=== PATIENT | male | born 1950 | race Caucasian/White ===

== ENCOUNTER → 2017-05-17 | Outpatient (REF) | payer MEDICARE, OTHER ==
[2017-05-17 17:37] LABS: MEAN CORPUSCULAR HGB CONC 33.8 g/dl (32.0-36.5); MEAN CORPUSCULAR VOLUME 97.6 fl (80.0-96.0); RED CELL DISTRIBUTION WIDTH 13.7 % (11.5-14.5); WHITE BLOOD COUNT 6.8 10^3/uL (4.0-10.0)
[2017-05-17 19:39] LABS: ALBUMIN/GLOBULIN RATIO 1.11 (1.00-1.93); ALKALINE PHOSPHATASE 54 U/L (45-117); ALT/SGPT 27 U/L (12-78); ANION GAP 4 MEQ/L (8-16); AST/SGOT 18 U/L (15-37); BILIRUBIN,TOTAL 0.8 MG/DL (0.2-1.0); BLOOD UREA NITROGEN 16 MG/DL (7-18); CALCIUM LEVEL 9.1 MG/DL (8.8-10.2); CARBON DIOXIDE LEVEL 30 MEQ/L (21-32); CHLORIDE LEVEL 105 MEQ/L (98-107); CHOLESTEROL LEVEL 249 MG/DL (<200); CREATININE FOR GFR 0.87 MG/DL (0.70-1.30); GLOMERULAR FILTRATION RATE > 60.0 (>49); GLUCOSE, FASTING 102 MG/DL (80-110); POTASSIUM SERUM 4.9 MEQ/L (3.5-5.1); SODIUM LEVEL 139 MEQ/L (136-145); TOTAL PROTEIN 7.6 GM/DL (6.4-8.2); TRIGLYCERIDES LEVEL 132 MG/DL (<150)
== END ==
LOC: M SFHCCLAY 10:11
PROVIDERS: ATTEND Family Medicine
DX: G56.02 Carpal tunnel syndrome, left upper limb (principal); R07.89 Other chest pain; M71.21 Synovial cyst of popliteal space [Baker], right knee; Z23 Encounter for immunization
CPT/HCPCS: 80053; 80061; 84443; 85027; 90662; G0008

== ENCOUNTER → 2018-05-18 | Outpatient (REF) | payer MEDICARE, OTHER ==
[2018-05-18 12:16] LABS: ALBUMIN 4.2 GM/DL (3.2-5.2); ALKALINE PHOSPHATASE 58 U/L (45-117); ALT/SGPT 29 U/L (12-78); ANION GAP 6 MEQ/L (8-16); AST/SGOT 25 U/L (7-37); BILIRUBIN,TOTAL 0.9 MG/DL (0.2-1.0); BLOOD UREA NITROGEN 18 MG/DL (7-18); CALCIUM LEVEL 9.3 MG/DL (8.8-10.2); CARBON DIOXIDE LEVEL 29 MEQ/L (21-32); CHLORIDE LEVEL 105 MEQ/L (98-107); CHOLESTEROL LEVEL 242 MG/DL (<200); CHOLESTEROL RISK RATIO 5.041 (<5); CREATININE FOR GFR 0.84 MG/DL (0.70-1.30); GLOMERULAR FILTRATION RATE > 60.0 (>49); GLUCOSE, FASTING 96 MG/DL (70-100); HDL CHOLESTEROL 48 MG/DL (>40); LDL CHOLESTEROL 175 MG/DL (<100); NON-HDL-C 194 MG/DL; SODIUM LEVEL 140 MEQ/L (136-145); TOTAL PROTEIN 7.7 GM/DL (6.4-8.2); TRIGLYCERIDES LEVEL 95 MG/DL (<150)
== END ==
LOC: M SFHCCLAY 09:20
DX: E78.00 Pure hypercholesterolemia, unspecified (principal); Z23 Encounter for immunization
CPT/HCPCS: 80053

== ENCOUNTER 2018-11-12 14:32 | Emergency (ER) | payer MEDICARE, OTHER ==
[~2018-11-12] VITALS: Ht 175.3 cm; Wt 72.7 kg
[2018-11-12] MEDS ORDERED: AMIODARONE HCL 150 MG/100 ML PREMIXED BAG (NEXTERONE) As Ordered ONE (15:00)
[2018-11-12 15:07] LABS: BASO # 0.1 10^3/uL (0.0-0.2); BASO % 0.5 % (0.0-1.0); EOS # 0.2 10^3/uL (0.0-0.50); EOS % 1.9 % (0.0-3.0); HEMATOCRIT 42.3 % (42.0-52.0); HEMOGLOBIN 14.6 g/dl (13.5-17.5); LYMPH # 1.8 10^3/uL (1.5-4.5); LYMPH % 14.8 % (24.0-44.0); MEAN CORPUSCULAR HEMOGLOBIN 32.6 pg (27.0-33.0); MEAN CORPUSCULAR HGB CONC 34.5 g/dl (32.0-36.5); MEAN CORPUSCULAR VOLUME 94.4 fl (80.0-96.0); MONO # 0.7 10^3/uL (0.0-0.8); MONO % 5.5 % (0.0-5.0); NEUTROPHILS # 9.2 10^3/uL (1.8-7.7); PLATELET COUNT, AUTOMATED 257 10^3/uL (150-450); RED BLOOD COUNT 4.48 10^6/uL (4.30-6.10); WHITE BLOOD COUNT 11.9 10^3/uL (4.0-10.0)
[2018-11-12] MEDS ORDERED: AMIODARONE HCL 150 MG in APPROPRIATE DILUENT 1 EA IV STA (15:14)
[2018-11-12 15:19] LABS: INR 1.07
--- NOTE | 2018-11-12 15:30 | REP ---
Clinical: Acute chest pain . Comparison: 09/12/2008 Findings: The mediastinum and cardiac silhouette are stable and within normal limits for portable technique. The lung lara are clear without acute consolidation, effusion, or pneumothorax. Skeletal structures are intact. Impression: No acute cardiopulmonary process appreciated. Electronically Signed by Matthieu Barajas MD 11/12/2018 03:21 P
[2018-11-12 15:47] LABS: ALBUMIN 3.7 GM/DL (3.2-5.2); ALT/SGPT 23 U/L (12-78); BILIRUBIN,DIRECT 0.2 MG/DL (0.0-0.2); BILIRUBIN,TOTAL 0.8 MG/DL (0.2-1.0); BLOOD UREA NITROGEN 18 MG/DL (7-18); CALCIUM LEVEL 9.1 MG/DL (8.8-10.2); CARBON DIOXIDE LEVEL 25 MEQ/L (21-32); CHLORIDE LEVEL 106 MEQ/L (98-107); CPK CREATINE PHOSPHOKINASE 233 U/L (39-308); CREATININE FOR GFR 0.96 MG/DL (0.70-1.30); ETHYL ALCOHOL (ETHANOL) < 0.003 % (0.000-0.010); GLOMERULAR FILTRATION RATE > 60.0 (>49); GLUCOSE, FASTING 169 MG/DL (70-100); MAGNESIUM LEVEL 1.9 MG/DL (1.8-2.4); MB/CK RELATIVE INDEX 2.36 (< OR =4); NT-PRO BNP 1015 PG/ML (<125); POTASSIUM SERUM 4.1 MEQ/L (3.5-5.1); SODIUM LEVEL 138 MEQ/L (136-145); TROPONIN I < 0.02 NG/ML (< 0.10)
[2018-11-12] MEDS ORDERED: AMIODARONE HCL 360 MG in APPROPRIATE DILUENT 1 EA IV SCH (17:00)
[2018-11-12 17:25] VITALS: BP 121/90
--- NOTE | 2018-11-13 21:52 | ECGEPIP ---
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
--- NOTE | 2018-11-13 21:54 | ECGEPIP ---
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
== END 2018-11-12 17:26 | disposition short-term general hospital (02) ==
LOC: M ED 14:32
DX: R55 Syncope and collapse (principal); I47.2 Ventricular tachycardia; I48.91 Unspecified atrial fibrillation; I48.92 Unspecified atrial flutter; Z86.19 Personal history of other infectious and parasitic diseases; Z87.891 Personal history of nicotine dependence
CPT/HCPCS: 36415; 71045; 80048; 80076; 82550; 82553; 83735; 83880; 84443; 84484; 85025; 85610; 93005; 93041; 94760; 96374; 96376; 99285; G0480

== ENCOUNTER → 2019-01-17 | Outpatient (REF) | payer MEDICARE, OTHER ==
[2019-01-17 12:24] LABS: ALT/SGPT 27 U/L (12-78); BLOOD UREA NITROGEN 21 MG/DL (7-18); CALCIUM LEVEL 8.9 MG/DL (8.8-10.2); CARBON DIOXIDE LEVEL 28 MEQ/L (21-32); CHLORIDE LEVEL 108 MEQ/L (98-107); CHOLESTEROL LEVEL 140 MG/DL (<200); CHOLESTEROL RISK RATIO 3.333 (<5); CREATININE FOR GFR 1.02 MG/DL (0.70-1.30); GLOMERULAR FILTRATION RATE > 60.0 (>42); GLUCOSE, FASTING 112 MG/DL (70-100); HDL CHOLESTEROL 42 MG/DL (>40); LDL CHOLESTEROL 80 MG/DL (<100); NON-HDL-C 98 MG/DL; POTASSIUM SERUM 4.5 MEQ/L (3.5-5.1); SODIUM LEVEL 141 MEQ/L (136-145); TRIGLYCERIDES LEVEL 88 MG/DL (<150)
== END ==
LOC: M SFHCCLAY 07:46
PROVIDERS: ATTEND Family Medicine
DX: E78.00 Pure hypercholesterolemia, unspecified (principal)

== ENCOUNTER → 2019-03-18 | Outpatient (REF) | payer MEDICARE, OTHER ==
[2019-03-19 14:27] LABS: BLOOD UREA NITROGEN 28 MG/DL (7-18); CARBON DIOXIDE LEVEL 24 MEQ/L (21-32); CHLORIDE LEVEL 110 MEQ/L (98-107); CREATININE FOR GFR 1.23 MG/DL (0.70-1.30); GLOMERULAR FILTRATION RATE > 60.0 (>42); GLUCOSE, FASTING 124 MG/DL (70-100); POTASSIUM SERUM 4.8 MEQ/L (3.5-5.1); SODIUM LEVEL 140 MEQ/L (136-145)
== END ==
LOC: M LABDRAWC 13:06
PROVIDERS: ATTEND Internal Medicine Cardiovascular Disease
DX: I48.91 Unspecified atrial fibrillation (principal)

== ENCOUNTER → 2019-05-16 | Outpatient (CLI) | payer MEDICARE, OTHER ==
--- NOTE | 2019-05-16 13:54 | REP ---
The PA and lateral chest: Comparison is 11/12/2018. Lung lara are hyperinflated. The costophrenic angles are effaced. This is not this specific and could be secondary to the hyperinflation or could represent small bilateral pleural effusions. There is a curvilinear parenchymal scar versus discoid atelectasis above the left hemidiaphragm. The lung lara otherwise clear. Cardiac size is normal. The amauri and mediastinum are unremarkable. There is thoracic scoliosis convex right in the lower thoracic spine. There is a loop recorder on the left. Impression: Hyperinflation. Small bilateral pleural effusions versus artifact from hyperinflation. Curvilinear scarring versus discoid atelectasis above the left hemidiaphragm. Scoliosis. Electronically Signed by Edwin Tucker MD 05/16/2019 01:46 P
== END ==
LOC: M CLY 09:34
PROVIDERS: ATTEND Family Medicine
DX: R91.8 Other nonspecific abnormal finding of lung field (principal); M41.9 Scoliosis, unspecified; R06.09 Other forms of dyspnea
CPT/HCPCS: 71046; 80053; 84439; 84443; 85027; 90682; 94010; G0008

== ENCOUNTER → 2019-05-16 | Outpatient (REF) | payer MEDICARE, OTHER ==
[2019-05-16 16:33] LABS: HEMATOCRIT 43.2 % (42.0-52.0); HEMOGLOBIN 14.3 g/dl (13.5-17.5); MEAN CORPUSCULAR HEMOGLOBIN 33.9 pg (27.0-33.0); MEAN CORPUSCULAR HGB CONC 33.1 g/dl (32.0-36.5); MEAN CORPUSCULAR VOLUME 102.4 fl (80.0-96.0); PLATELET COUNT, AUTOMATED 266 10^3/uL (150-450); RED BLOOD COUNT 4.22 10^6/uL (4.30-6.10); WHITE BLOOD COUNT 7.6 10^3/uL (4.0-10.0)
[2019-05-16 16:46] LABS: ALT/SGPT 25 U/L (12-78); BILIRUBIN,TOTAL 0.9 MG/DL (0.2-1.0); BLOOD UREA NITROGEN 16 MG/DL (7-18); CALCIUM LEVEL 9.3 MG/DL (8.8-10.2); CARBON DIOXIDE LEVEL 30 MEQ/L (21-32); CHLORIDE LEVEL 105 MEQ/L (98-107); CREATININE FOR GFR 1.06 MG/DL (0.70-1.30); FREE T4 1.24 NG/DL (0.76-1.46); GLOMERULAR FILTRATION RATE > 60.0 (>42); GLUCOSE, FASTING 94 MG/DL (70-100); SODIUM LEVEL 138 MEQ/L (136-145); TOTAL PROTEIN 7.7 GM/DL (6.4-8.2)
== END ==
LOC: M SFHCCLAY 09:05
PROVIDERS: ATTEND Family Medicine
DX: I48.0 Paroxysmal atrial fibrillation (principal); E78.00 Pure hypercholesterolemia, unspecified

== ENCOUNTER 2019-10-04 09:05 | Day surgery (SDC) | payer MEDICARE, OTHER ==
[~2019-10-04] VITALS: Ht 172.7 cm; Wt 72.6 kg
[~2019-10-04 09:05] MED LIST: ASPI81CH33 PO; CRES40TA PO; LISI-542 PO; NS 1,000 ML IV ONE
[2019-10-04] MEDS ORDERED: LIDOCAINE 2% INJ 100 MG/5 ML SDV (FOR ANES.) As Ordered ONE (09:59)
[2019-10-04] MEDS ORDERED: propofoL 500 MG/50 ML VIAL As Ordered ONE (09:59)
[2019-10-04] MEDS ORDERED: ePHEDrine SULFATE 25 MG/5 ML(5MG/ML) SYRINGE As Ordered ONE (10:08)
--- NOTE | 2019-10-04 10:24 | ROOR ---
Patient Name: Michael Cross Procedure Date: 10/04/2019 10:00 AM Date of : 1950 Age: 68 Room: [facility] Gender: Male Note Status: Finalized Procedure: Colonoscopy Indications: High risk colon cancer surveillance: Personal history of colonic polyps, Last colonoscopy: July 2016 Providers: Sp CORRALES MD Referring MD: Rodrigo Burnette MD Requesting Provider: Medicines: Monitored Anesthesia Care Complications: No immediate complications. Procedure: Pre-Anesthesia Assessment: - The heart rate, respiratory rate, oxygen saturations, blood pressure, adequacy of pulmonary ventilation, and response to care were monitored throughout the procedure. The Colonoscope was introduced through the anus and advanced to the terminal ileum, with identification of the appendiceal orifice and IC valve. The colonoscopy was performed without difficulty. The patient tolerated the procedure well. The quality of the bowel preparation was good. Findings: The perianal and digital rectal examinations were normal. Two sessile polyps were found in the transverse colon and cecum. The polyps were 4 to 5 mm in size. These polyps were removed with a cold snare. Resection and retrieval were complete. Mild sigmoid diverticulosis and moderate internal hemorrhoids. Retroflexion in the right colon was performed. The exam was otherwise without abnormality on direct and retroflexion views. Impression: - Two 4 to 5 mm polyps in the transverse colon and in the cecum, removed with a cold snare. Resected and retrieved. - Mild sigmoid diverticulosis and moderate internal hemorrhoids. - The examination was otherwise normal on direct and retroflexion views. Recommendation: - Repeat colonoscopy in 3 - 5 years for surveillance. - Telephone endoscopist for pathology results. - If the pathology report reveals adenomatous tissue, then repeat the colonoscopy for surveillance in 3 years. - If the pathology report indicates hyperplastic polyp, then repeat colonoscopy for surveillance in 5 years. Sp Corrales MD Sp CORRALES MD 10/04/2019 10:24:11 AM Electronically signed by Sp CORRALES MD Number of Addenda: 0 Note Initiated On: 10/04/2019 10:00 AM Estimated Blood Loss: Estimated blood loss: none.
[2019-10-04 10:40] VITALS: BP 110/64
== END 2019-10-04 10:52 | disposition home or self-care (01) ==
LOC: M OPP 09:05
PROVIDERS: ATTEND Internal Medicine Gastroenterology
DX: Z12.11 Encounter for screening for malignant neoplasm of colon (principal); Z86.010 Personal history of colon polyps; D12.3 Benign neoplasm of transverse colon; D12.0 Benign neoplasm of cecum; I48.91 Unspecified atrial fibrillation; G47.30 Sleep apnea, unspecified; K64.8 Other hemorrhoids; K57.30 Diverticulosis of large intestine without perforation or abscess without bleeding; Z79.82 Long term (current) use of aspirin; Z79.899 Other long term (current) drug therapy

== ENCOUNTER → 2019-10-22 | Outpatient (CLI) | payer MEDICARE, OTHER ==
[~2019-10-22] MED LIST changes: -NS 1,000 ML IV ONE
--- NOTE | 2019-10-25 12:42 | SLEEPCENT ---
DATE OF PROCEDURE: 10/22/2019 ORDERING PROVIDER: Matthieu Campbell PA-C. INTERPRETATION: Nocturnal polysomnography was performed for evaluation of sleep physiology in this patient with a history of somnolence and nonrestorative sleep who has comorbidity of hypertension and cardiac dysrhythmia. 8 hours and 7 minutes of data were reviewed. There were 325.5 minutes of sleep identified. Sleep latency was short of 10.5 minutes. REM latency was normal at 95-minute. Sleep architecture was initially quite fragmented. Overall sleep efficiency of 67.5%. The patient's electrocardiogram showed very small complexes, supraventricular rhythm with an average heart rate of 55 beats per minute. EEG showed normal waveforms for awake and sleep. There were 225 respiratory events identified of 10 seconds in duration or greater for an apnea-hypopnea index of 14.5. The events were primarily obstructive but 115 mixed and central apneas were also seen. Having clearly established the presence of obstructive and complex obstructive sleep apnea syndrome early in the study, testing was stopped for the application of pressure therapy. The patient was fit with a ResMed Quattro full-face mask of large size, 5 cm of water pressure was applied to the circuit and the lights were extinguished. Throughout the remaining hours of testing pressure titration and was performed. Despite a pressure of 14 cm, some obstructive events persisted. Oxygen saturations did improve, however. There was significant limb activity throughout the study. Limb movement arousal index of 6.8. IMPRESSION: Complex obstructive sleep apnea syndrome (G47.31, G4 7.33). Apnea-hypopnea index 41.5. RECOMMENDATIONS: Initiation of CPAP at 14 cm of water should improve the patient's experience of sleep. However, given the severity of the patient's disease and the complex nature, referral back to the sleep disorder center for a full night titration and consideration of the use of a bilevel device may be reasonable.
== END ==
LOC: M SLEEP 19:41
PROVIDERS: ATTEND Physician Assistant
DX: G47.33 Obstructive sleep apnea (adult) (pediatric) (principal); G47.61 Periodic limb movement disorder

== ENCOUNTER → 2019-10-23 | Outpatient (CLI) | payer MEDICARE, OTHER ==
--- NOTE | 2019-10-23 07:40 | REP ---
PA and lateral chest: Comparison is 05/16/2019. The lung lara are clear but are chronically hyperinflated, unchanged. Cardiac size is normal. The amauri, mediastinum, skeletal structures are unremarkable and unchanged. A loop recorder is implanted in the anterior chest wall on the left, unchanged. Impression Chronic hyperinflation. No acute cardiopulmonary findings. Loop recorder. Electronically Signed by Edwin Tucker MD 10/23/2019 07:31 A
== END ==
LOC: M RAD 06:05
PROVIDERS: ATTEND Physician Assistant
DX: R06.00 Dyspnea, unspecified (principal)

== ENCOUNTER → 2019-11-16 | Outpatient (CLI) | payer MEDICARE, OTHER ==
--- NOTE | 2019-11-18 16:33 | SLEEPCENT ---
DATE OF PROCEDURE: 11/16/2019 ORDERED BY: YESENIA Espinoza Nocturnal polysomnography was performed for the titration of pressure therapy in this patient with severe obstructive sleep apnea syndrome. For testing a Rosen and Luistereza, Simplus full-face mask of large size was used; 4 cm of water pressure was initially applied to the circuits and the lights were extinguished. 7 hours and 34 minutes of data were reviewed. There were 220 minutes of sleep identified. Sleep latency was short at 16 minutes. Rapid eye movement (REM) latency was delayed at 188 minutes. Sleep architecture showed poor progression. There was little REM sleep. Overall sleep efficiency was 49.5%. The electrocardiogram showed a baseline sinus rhythm with premature ventricular contractions (PVCs). Average heart rate 52 beats per minute. Electroencephalogram (EEG) showed normal waveforms for awake and sleep. Persistent respiratory events prompted an increase in CPAP pressure. Sleep was seen on a CPAP pressure of 17. Further increases in pressure were untolerated. The patient had difficulty establishing sleep late in the study. There was significant limb activity noted on this study. Limb movement arousal index was 16.4 up from a diagnostic night. IMPRESSION: Obstructive sleep apnea syndrome (G47.33). RECOMMENDATIONS: Nightly use of pressure therapy at 17 cm of water appears to palliate reasonably the patient's obstructive respiratory events. Close clinical followup will be necessary however given the severity of the patient's disease and difficulty establishing the sleep and sleep lab.
== END ==
LOC: M SLEEP 20:00
PROVIDERS: ATTEND Physician Assistant
DX: G47.33 Obstructive sleep apnea (adult) (pediatric) (principal)

== ENCOUNTER → 2020-02-22 | Outpatient (CLI) | payer MEDICARE, OTHER ==
[~2020-02-22] MED LIST changes: +AMIO200T3 PO; +ELIQ5TAB PO
--- NOTE | 2020-03-04 11:48 | SLEEPCENT ---
DATE OF STUDY: 02/22/2020 ORDERED BY: TONO Espinoza Nocturnal polysomnography was performed for retitration of pressure therapy in this patient with severe obstructive sleep apnea syndrome. For testing, a ResMed F30 full face mask of medium size was used. An initial pressure of 12 cm was applied to the circuit, and the lights were extinguished. 7 hours and 34 minutes of data were reviewed. There were 329 minutes of sleep identified. Sleep latency was short of 8 minutes. Rapid eye movement (REM) latency was prolonged at 165 minutes. Sleep architecture improved late in the study. Overall sleep efficiency was 73.9%. The patient's electrocardiogram showed a sinus rhythm with an average heart rate of 48 beats per minute. Electroencephalogram (EEG) showed normal waveforms for awake and sleep. Persistent respiratory events prompted an increase in continuous positive airway pressure (CPAP) pressure; and despite optimal mask fit and minimal air leak, the patient was changed to a bilevel device. Best sleep was seen on a bilevel device, inspiratory pressure 24 over expiratory pressure of 20. Some significant limb activity was seen, particularly early in the study. The limb movement arousal index was 15.5. IMPRESSION: Obstructive sleep apnea syndrome (G47.33). RECOMMENDATION: Nightly use of pressure therapy using a bilevel device, inspiratory of 24 over expiratory of 20.
== END ==
LOC: M SLEEP 20:00
PROVIDERS: ATTEND Physician Assistant
DX: G47.33 Obstructive sleep apnea (adult) (pediatric) (principal)

== ENCOUNTER 2020-05-03 09:57 | Emergency (ER) | payer MEDICARE, OTHER ==
[~2020-05-03] VITALS: Ht 175.3 cm; Wt 70.5 kg
[~2020-05-03 09:57] MED LIST changes: -AMIO200T3 PO; -ELIQ5TAB PO
[2020-05-03] MEDS ORDERED: NS 1,000 ML IV SCH (10:11)
[2020-05-03] MEDS ORDERED: AMIO200T3 PO (10:13)
[2020-05-03 10:39] LABS: BASO % 0.5 % (0.0-1.0); EOS # 0.1 10^3/uL (0.0-0.5); EOS % 1.1 % (0.0-3.0); HEMATOCRIT 43.4 % (42.0-52.0); HEMOGLOBIN 14.8 g/dl (13.5-17.5); LYMPH # 1.1 10^3/uL (1.5-5.0); MEAN CORPUSCULAR HEMOGLOBIN 34.2 pg (27.0-33.0); MEAN CORPUSCULAR HGB CONC 34.1 g/dl (32.0-36.5); MEAN CORPUSCULAR VOLUME 100.2 fl (80.0-96.0); MONO # 0.3 10^3/uL (0.0-0.8); NEUTROPHILS # 6.4 10^3/uL (1.5-8.5); PLATELET COUNT, AUTOMATED 251 10^3/uL (150-450); RED BLOOD COUNT 4.33 10^6/uL (4.30-6.10)
[2020-05-03 10:49] LABS: PROTHROMBIN TIME 13.4 SECONDS (12.5-14.3)
[2020-05-03 11:10] LABS: BILIRUBIN,DIRECT 0.2 MG/DL (0.0-0.2); FREE T4 1.22 NG/DL (0.76-1.46); THYROID STIMULATING HORMONE 1.85 uIU/ML (0.358-3.740); TOTAL PROTEIN 7.5 GM/DL (6.4-8.2)
--- NOTE | 2020-05-03 11:15 | REPVR ---
PROCEDURE INFORMATION: Exam: XR Chest, 1 View Exam date and time: 05/03/2020 10:53 AM Age: 69 years old Clinical indication: Chest pain; Type not specified TECHNIQUE: Imaging protocol: XR of the chest Views: 1 view. COMPARISON: CR PORTABLE CHEST X-RAY 11/12/2018 3:11 PM FINDINGS: Tubes, catheters and devices: There is a loop recorder in place. Lungs: There is slight hyperinflation which can be seen with COPD. Pleural space: No pleural effusion. No pneumothorax. Heart/Mediastinum: No cardiomegaly. Bones/joints: Unchanged. IMPRESSION: 1. COPD. 2. A followup PA and lateral radiograph is recommended when the patient is clinically able. Electronically signed by: Jose Reyes On 05/03/2020 11:14:59 AM
[2020-05-03 12:46] VITALS: BP 143/90
[2020-05-03] MEDS ORDERED: ELIQ5TAB PO (12:55)
[2020-05-03] MEDS ORDERED: APIXABAN 5 MG TAB (ELIQUIS) PO ONE (13:00)
--- NOTE | 2020-05-03 13:22 | ECGEPIP ---
[facility] - ED Test Date: 2020-05-03 Pat Name: NEREYDA KIMBROUGH Department: Room: - Gender: Male Crtt: : 1950 Requested By: Angeles Sparks Order Number: [id number] Reading MD: Angeles Sparks Measurements Intervals [place] Rate: 69 P: NM: 0 QRS: 57 QRSD: 84 T: 65 QT: 408 QTc: 439 Interpretive Statements ATYPICAL ATRIAL FLUTTER LOW QRS VOLTAGE IN EXTREMITY LEADS ABNORMAL RHYTHM ECG Electronically Signed on 05-03-2020 13:22:26 EDT by Angeles Sparks
== END 2020-05-03 13:17 | disposition home or self-care (01) ==
LOC: M ED 09:57
DX: I48.4 Atypical atrial flutter (principal); R94.31 Abnormal electrocardiogram [ECG] [EKG]; I48.91 Unspecified atrial fibrillation; Z95.818 Presence of other cardiac implants and grafts; Z82.49 Family history of ischemic heart disease and other diseases of the circulatory system; J44.9 Chronic obstructive pulmonary disease, unspecified; Z79.01 Long term (current) use of anticoagulants; Z79.899 Other long term (current) drug therapy

== ENCOUNTER → 2020-11-13 | Outpatient (REF) | payer MEDICARE, OTHER ==
[~2020-11-13] MED LIST changes: +AMIO200T3 PO; +ELIQ5TAB PO; -LISI-542 PO; +LISI-898 PO
[2020-11-13 12:06] LABS: RED BLOOD COUNT 4.37 10^6/uL (4.30-6.10)
[2020-11-13 12:07] LABS: BASO # 0.1 10^3/uL (0.0-0.2); BASO % 0.8 % (0.0-1.0); EOS # 0.3 10^3/uL (0.0-0.5); EOS % 3.9 % (0.0-3.0); HEMATOCRIT 44.6 % (42.0-52.0); HEMOGLOBIN 14.8 g/dl (13.5-17.5); LYMPH # 2.4 10^3/uL (1.5-5.0); LYMPH % 29.8 % (24.0-44.0); MEAN CORPUSCULAR HEMOGLOBIN 33.9 pg (27.0-33.0); MEAN CORPUSCULAR HGB CONC 33.2 g/dl (32.0-36.5); MEAN CORPUSCULAR VOLUME 102.1 fl (80.0-96.0); MONO # 0.6 10^3/uL (0.0-0.8); MONO % 7.8 % (2.0-8.0); NEUTROPHILS # 4.6 10^3/uL (1.5-8.5); NEUTROPHILS % 57.3 % (36.0-66.0); PLATELET COUNT, AUTOMATED 261 10^3/uL (150-450)
[2020-11-13 12:21] LABS: ALBUMIN 3.9 GM/DL (3.2-5.2); ALT/SGPT 29 U/L (12-78); BILIRUBIN,TOTAL 0.9 MG/DL (0.2-1.0); BLOOD UREA NITROGEN 21 MG/DL (7-18); CALCIUM LEVEL 9.3 MG/DL (8.8-10.2); CARBON DIOXIDE LEVEL 29 MEQ/L (21-32); CHLORIDE LEVEL 106 MEQ/L (98-107); CHOLESTEROL LEVEL 156 MG/DL (<200); CHOLESTEROL RISK RATIO 3.183 (<5); CREATININE FOR GFR 1.05 MG/DL (0.70-1.30); FREE T4 1.04 NG/DL (0.76-1.46); GLOMERULAR FILTRATION RATE > 60.0 (>42); GLUCOSE, FASTING 106 MG/DL (70-100); HDL CHOLESTEROL 49 MG/DL (>40); LDL CHOLESTEROL 87 MG/DL (<100); NON-HDL-C 107 MG/DL; POTASSIUM SERUM 4.9 MEQ/L (3.5-5.1); SODIUM LEVEL 138 MEQ/L (136-145); TOTAL PROTEIN 7.5 GM/DL (6.4-8.2); TRIGLYCERIDES LEVEL 101 MG/DL (<150)
== END ==
LOC: M SFHCCLAY 08:29
PROVIDERS: ATTEND Family Medicine
DX: H53.9 Unspecified visual disturbance (principal); I48.0 Paroxysmal atrial fibrillation; Z79.899 Other long term (current) drug therapy

== ENCOUNTER 2021-01-18 08:32 | Emergency (ER) | payer MEDICARE, OTHER ==
[~2021-01-18] VITALS: Ht 175.3 cm; Wt 72.1 kg
[2021-01-18] MEDS ORDERED: XARE20TA PO (08:40)
[2021-01-18 09:01] LABS: BILIRUBIN, URINE MANUAL NEGATIVE (NEGATIVE); GLUCOSE, URINE (UA) MANUAL NEGATIVE (NEGATIVE); KETONE, URINE MANUAL NEGATIVE (NEGATIVE); UROBILINOGEN, URINE MANUAL NORMAL (NORMAL)
[2021-01-18 09:05] LABS: BACTERIA, URINE SMALL AMOUNT; RBC, URINE TNTC /hpf (0-3)
[2021-01-18 09:57] VITALS: BP 123/71
[2021-01-18] MEDS ORDERED: CEPH500C PO (10:06)
== END 2021-01-18 10:40 | disposition home or self-care (01) ==
LOC: M ED 08:32
DX: N30.01 Acute cystitis with hematuria (principal); I10 Essential (primary) hypertension; I48.91 Unspecified atrial fibrillation; E78.5 Hyperlipidemia, unspecified; Z79.01 Long term (current) use of anticoagulants; Z79.899 Other long term (current) drug therapy

== ENCOUNTER → 2021-03-04 | Outpatient (REF) | payer MEDICARE, OTHER ==
[~2021-03-04] MED LIST changes: +CEPH500C PO; +XARE20TA PO
[2021-03-04 16:51] LABS: BLOOD UREA NITROGEN 20 MG/DL (7-18); CARBON DIOXIDE LEVEL 29 MEQ/L (21-32); CHLORIDE LEVEL 107 MEQ/L (98-107); CREATININE FOR GFR 1.08 MG/DL (0.70-1.30); GLOMERULAR FILTRATION RATE > 60.0 (>42); GLUCOSE, FASTING 100 MG/DL (70-100); POTASSIUM SERUM 4.6 MEQ/L (3.5-5.1); SODIUM LEVEL 139 MEQ/L (136-145)
== END ==
LOC: M LABDRAWC 15:56
PROVIDERS: ATTEND Nurse Practitioner Adult Health
DX: I47.2 Ventricular tachycardia (principal)

== ENCOUNTER → 2021-09-08 | Outpatient (REF) | payer MEDICARE, OTHER ==
[~2021-09-08] MED LIST changes: -AMIO200T3 PO; +AMIO200T49 PO; -LISI-898 PO; +LISI5TAB11 PO
[2021-09-08 16:19] LABS: HEMATOCRIT 42.1 % (42.0-52.0); HEMOGLOBIN 13.8 g/dl (13.5-17.5); MEAN CORPUSCULAR HEMOGLOBIN 33.1 pg (27.0-33.0); MEAN CORPUSCULAR HGB CONC 32.8 g/dl (32.0-36.5); PLATELET COUNT, AUTOMATED 322 10^3/uL (150-450); RED BLOOD COUNT 4.17 10^6/uL (4.30-6.10); WHITE BLOOD COUNT 7.7 10^3/uL (4.0-10.0)
[2021-09-08 16:59] LABS: ALBUMIN 3.8 GM/DL (3.2-5.2); BILIRUBIN,TOTAL 0.7 MG/DL (0.2-1.0); CALCIUM LEVEL 9.6 MG/DL (8.8-10.2); CHOLESTEROL RISK RATIO 3.666 (<5); CREATININE FOR GFR 1.35 MG/DL (0.70-1.30); GLOMERULAR FILTRATION RATE 55.3 (>42); POTASSIUM SERUM 5.2 MEQ/L (3.5-5.1); THYROID STIMULATING HORMONE 1.65 uIU/ML (0.358-3.740); TOTAL PROTEIN 7.7 GM/DL (6.4-8.2)
== END ==
LOC: M SFHCCLAY 10:47
PROVIDERS: ATTEND Family Medicine
DX: I48.0 Paroxysmal atrial fibrillation (principal); I10 Essential (primary) hypertension; E78.00 Pure hypercholesterolemia, unspecified

== ENCOUNTER → 2021-10-14 | Outpatient (REF) | payer MEDICARE, OTHER ==
[2021-10-14 17:58] LABS: THYROID STIMULATING HORMONE 1.29 uIU/ML (0.358-3.740)
[2021-10-15 15:34] LABS: FREE T4 1.2 NG/DL (0.76-1.46)
[2021-10-18 17:08] LABS: ESTROGENS TOTAL 153 pg/mL (56-213); TESTOSTERONE FREE (DIRECT) 7.2 pg/mL (6.6-18.1)
== END ==
LOC: M SFHCCLAY 10:03
PROVIDERS: ATTEND Family Medicine
DX: N64.4 Mastodynia (principal); Z79.899 Other long term (current) drug therapy

== ENCOUNTER → 2021-10-29 | Outpatient (CLI) | payer MEDICARE, OTHER | LOC: M WHC 11:06 | PROVIDERS: ATTEND Family Medicine | DX: N64.4 Mastodynia (principal) | CPT/HCPCS: 76642; 77066; G0279 ==

== ENCOUNTER → 2021-12-10 | Outpatient (CLI) | payer MEDICARE, OTHER ==
[2021-12-10 17:21] LABS: ALBUMIN 4.1 GM/DL (3.2-5.2); BILIRUBIN,TOTAL 0.8 MG/DL (0.2-1.0); CALCIUM LEVEL 9.4 MG/DL (8.8-10.2); CREATININE FOR GFR 1.37 MG/DL (0.70-1.30); FOLLICLE STIMULATING HORMONE 8.3 mIU/mL (1.4-18.1); FREE T4 1.1 NG/DL (0.76-1.46); GLOMERULAR FILTRATION RATE 54.4 (>42); LUTEINIZING HORMONE 10.3 mIU/mL (3.1-34.6); POTASSIUM SERUM 5.1 MEQ/L (3.5-5.1); THYROID STIMULATING HORMONE 1.59 uIU/ML (0.358-3.740); TOTAL PROTEIN 7.3 GM/DL (6.4-8.2)
== END ==
LOC: M PLALAB 14:57
PROVIDERS: ATTEND Surgery
DX: N62 Hypertrophy of breast (principal); Z79.899 Other long term (current) drug therapy

== ENCOUNTER → 2022-01-06 | Outpatient (REF) | payer MEDICARE, OTHER | LOC: M LABDRAWC 17:36 | PROVIDERS: ATTEND Surgery | DX: N62 Hypertrophy of breast (principal); I48.0 Paroxysmal atrial fibrillation; I25.10 Atherosclerotic heart disease of native coronary artery without angina pectoris ==

== ENCOUNTER → 2022-06-27 | Outpatient (CLI) | payer MEDICARE, OTHER | LOC: M CLY 08:10 | PROVIDERS: ATTEND Physician Assistant | DX: Z01.818 Encounter for other preprocedural examination (principal); R06.09 Other forms of dyspnea; I70.0 Atherosclerosis of aorta; M51.34 Other intervertebral disc degeneration, thoracic region; M53.84 Other specified dorsopathies, thoracic region; Z95.828 Presence of other vascular implants and grafts ==

== ENCOUNTER 2022-06-28 10:14 | Emergency (ER) | payer MEDICARE, OTHER ==
[~2022-06-28] VITALS: Ht 175.3 cm; Wt 67.4 kg
[2022-06-28 10:38] LABS: HEMATOCRIT 29.7 % (42.0-52.0); HEMOGLOBIN 10.2 g/dl (13.5-17.5); MEAN CORPUSCULAR HEMOGLOBIN 31.7 pg (27.0-33.0); MEAN CORPUSCULAR HGB CONC 34.3 g/dl (32.0-36.5); MEAN CORPUSCULAR VOLUME 92.2 fl (80.0-96.0); RED BLOOD COUNT 3.22 10^6/uL (4.30-6.10); WHITE BLOOD COUNT 6.4 10^3/uL (4.0-10.0)
[2022-06-28 10:41] LABS: PLATELET COUNT, AUTOMATED 69 10^3/uL (150-450)
[2022-06-28 11:25] LABS: NEUTROPHILS 60 % (28-66); PLATELET ESTIMATE DECREASED (NORMAL); TOXIC VACUOLATION 1+
[2022-06-28 11:37] LABS: ATYPICAL LYMPH 5 % (0-5); LYMPHOCYTES 32 % (16-44)
[2022-06-28 11:38] LABS: BLOOD UREA NITROGEN 37 MG/DL (7-18); CALCIUM LEVEL 6.9 MG/DL (8.8-10.2); CARBON DIOXIDE LEVEL 19 MEQ/L (21-32); CHLORIDE LEVEL 104 MEQ/L (98-107); CREATININE FOR GFR 1.25 MG/DL (0.70-1.30); GLOMERULAR FILTRATION RATE > 60.0 (>42); GLUCOSE, FASTING 99 MG/DL (70-100); MONOCYTES 3 % (0-5); POTASSIUM SERUM 3.5 MEQ/L (3.5-5.1); SODIUM LEVEL 132 MEQ/L (136-145)
[2022-06-28 11:42] LABS: RSV AMPLIFICATION NEGATIVE (NEGATIVE)
[2022-06-28 11:45] LABS: CK-MB VALUE MASS 2.4 NG/ML (<3.6); MB/CK RELATIVE INDEX 4.36 (< OR =4)
[2022-06-28 11:57] LABS: INR 3.02; PARTIAL THROMBOPLASTIN TIME 45.2 SECONDS (24.8-34.2); PROTHROMBIN TIME 31.8 SECONDS (12.5-14.5)
[2022-06-28 12:42] LABS: ALBUMIN 2.1 GM/DL (3.2-5.2); ALT/SGPT 69 U/L (12-78); BILIRUBIN,DIRECT 0.5 MG/DL (0.0-0.2); MAGNESIUM LEVEL 1.7 MG/DL (1.8-2.4); TOTAL PROTEIN 5.4 GM/DL (6.4-8.2)
[2022-06-28] MEDS ORDERED: MAG SULF 1GM/100ML (MAG RUN) 1 GM in IV 1 EA IV ONE (12:50)
[2022-06-28 13:11] LABS: CK-MB VALUE MASS 1.8 NG/ML (<3.6); MB/CK RELATIVE INDEX 2.3 (< OR =4)
[2022-06-28] MEDS ORDERED: ETOMIDATE INJ 20MG/10ML VIAL IV ONE (16:05)
[2022-06-28 16:55] VITALS: BP 95/53
== END 2022-06-28 17:44 | disposition home or self-care (01) ==
LOC: EDBD 10:14 → M ED 10:14
DX: I48.91 Unspecified atrial fibrillation (principal); R94.31 Abnormal electrocardiogram [ECG] [EKG]; Z98.890 Other specified postprocedural states; B19.20 Unspecified viral hepatitis C without hepatic coma; Z79.01 Long term (current) use of anticoagulants; Z79.899 Other long term (current) drug therapy
CPT/HCPCS: 71045; 80047; 80048; 80076; 81000; 82550; 82553; 83735; 84484; 85025; 85049; 85055; 85610; 85730; 87086; 87631; 93005; 93041; 94760; 96374; 99285; J3475

== ENCOUNTER → 2022-07-05 | Outpatient (REF) | payer MEDICARE, OTHER ==
[2022-07-05 17:02] LABS: BASO # 0.1 10^3/uL (0.0-0.2); BASO % 0.6 % (0.0-1.0); EOS # 0.3 10^3/uL (0.0-0.5); EOS % 2.9 % (0.0-3.0); HEMATOCRIT 29.2 % (42.0-52.0); HEMOGLOBIN 9.8 g/dl (13.5-17.5); LYMPH # 3.3 10^3/uL (1.5-5.0); LYMPH % 33.3 % (24.0-44.0); MEAN CORPUSCULAR HEMOGLOBIN 32.1 pg (27.0-33.0); MEAN CORPUSCULAR HGB CONC 33.6 g/dl (32.0-36.5); MEAN CORPUSCULAR VOLUME 95.7 fl (80.0-96.0); MONO # 0.8 10^3/uL (0.0-0.8); NEUTROPHILS # 5.3 10^3/uL (1.5-8.5); NEUTROPHILS % 54.5 % (36.0-66.0); PLATELET COUNT, AUTOMATED 331 10^3/uL (150-450); RED BLOOD COUNT 3.05 10^6/uL (4.30-6.10); WHITE BLOOD COUNT 9.8 10^3/uL (4.0-10.0)
[2022-07-05 17:26] LABS: INR 3.2; PROTHROMBIN TIME 33.2 SECONDS (12.5-14.5)
[2022-07-05 19:02] LABS: ALBUMIN 2.8 G/DL (3.2-5.2); ALT/SGPT 104 U/L (7.0-40); BILIRUBIN,TOTAL 0.8 MG/DL (0.3-1.2); BLOOD UREA NITROGEN 34 MG/DL (9-23); CALCIUM LEVEL 8.6 MG/DL (8.3-10.6); CARBON DIOXIDE LEVEL 25 MMOL/L (20-31); CHLORIDE LEVEL 101 MMOL/L (98-107); GLOMERULAR FILTRATION RATE > 60.0 (>42); GLUCOSE, FASTING 101 MG/DL (74-106); POTASSIUM SERUM 4.8 MMOL/L (3.5-5.1); SODIUM LEVEL 133 MMOL/L (136-145); TOTAL PROTEIN 6.9 G/DL (5.7-8.2)
== END ==
LOC: M SFHCCLAY 11:38
PROVIDERS: ATTEND Physician Assistant
DX: D50.8 Other iron deficiency anemias (principal); Z79.01 Long term (current) use of anticoagulants

== ENCOUNTER → 2022-07-13 | Outpatient (REF) | payer MEDICARE, OTHER ==
[2022-07-13 17:37] LABS: APPEARANCE, URINE MANUAL CLEAR (CLEAR); COLOR, URINE MANUAL YELLOW (YELLOW)
[2022-07-13 17:38] LABS: BILIRUBIN, URINE MANUAL NEGATIVE (NEGATIVE); BLOOD URINE MANUAL POSITIVE (NEGATIVE); GLUCOSE, URINE (UA) MANUAL NEGATIVE (NEGATIVE); KETONE, URINE MANUAL NEGATIVE (NEGATIVE); LEUKOCYTE ESTERASE, URINE MAN NEGATIVE (NEGATIVE); NITRITE, URINE MANUAL NEGATIVE (NEGATIVE); PROTEIN, URINE MANUAL TRACE mg/dL (NEGATIVE); UROBILINOGEN, URINE MANUAL NORMAL (NORMAL)
[2022-07-13 18:24] LABS: BACTERIA, URINE NONE SEEN; HYALINE CAST, URINE NONE SEEN /lpf (0-1); SQUAMOUS EPITHELIAL CELL URINE SMALL AMOUNT /hpf (SMALL AMT); WBC, URINE 0-1 /hpf (0-3)
== END ==
LOC: M SMT 16:50
PROVIDERS: ATTEND Urology
DX: R31.0 Gross hematuria (principal)

== ENCOUNTER → 2022-07-18 | Outpatient (REF) | payer MEDICARE, OTHER ==
[2022-07-18 15:05] LABS: APPEARANCE, URINE MANUAL CLEAR (CLEAR); COLOR, URINE MANUAL YELLOW (YELLOW)
[2022-07-18 15:08] LABS: BILIRUBIN, URINE MANUAL NEGATIVE (NEGATIVE); BLOOD URINE MANUAL POSITIVE (NEGATIVE); GLUCOSE, URINE (UA) MANUAL NEGATIVE (NEGATIVE); KETONE, URINE MANUAL NEGATIVE (NEGATIVE); LEUKOCYTE ESTERASE, URINE MAN NEGATIVE (NEGATIVE); NITRITE, URINE MANUAL NEGATIVE (NEGATIVE); PROTEIN, URINE MANUAL TRACE mg/dL (NEGATIVE); UROBILINOGEN, URINE MANUAL NORMAL (NORMAL)
[2022-07-18 15:43] LABS: BACTERIA, URINE SMALL AMOUNT; HYALINE CAST, URINE NONE SEEN /lpf (0-1); RBC, URINE 20-30 /hpf (0-3); SQUAMOUS EPITHELIAL CELL URINE SMALL AMOUNT /hpf (SMALL AMT); WBC, URINE 0-1 /hpf (0-3)
== END ==
LOC: M SMT 13:07
PROVIDERS: ATTEND Urology
DX: R31.0 Gross hematuria (principal)

== ENCOUNTER → 2022-07-28 | Outpatient (CLI) | payer MEDICARE, OTHER ==
[~2022-07-28] MED LIST changes: +ISOVUE-370 76% 100ML VIAL As Ordered ONE
== END ==
LOC: M RAD 13:13
PROVIDERS: ATTEND Urology
DX: N28.1 Cyst of kidney, acquired (principal)
CPT/HCPCS: 74178; Q9967

== ENCOUNTER → 2022-09-15 | Outpatient (CLI) | payer MEDICARE, OTHER ==
[~2022-09-15] MED LIST changes: +DRON400T; -ISOVUE-370 76% 100ML VIAL As Ordered ONE
== END ==
LOC: M LABSMTC 09:27
PROVIDERS: ATTEND Anesthesiology
DX: Z01.812 Encounter for preprocedural laboratory examination (principal); Z20.822 Contact with and (suspected) exposure to COVID-19

== ENCOUNTER 2022-09-20 08:10 | Day surgery (SDC) | payer MEDICARE, OTHER ==
[~2022-09-20] VITALS: Ht 175.3 cm; Wt 71.2 kg
[~2022-09-20 08:10] MED LIST changes: +NS 1,000 ML IV ONE
[2022-09-20] MEDS ORDERED: propofoL 200 MG/20 ML VIAL As Ordered ONE (09:01)
[2022-09-20] MEDS ORDERED: LIDOCAINE 2% 100MG/5ML SDV (FOR ANES.) As Ordered ONE (09:01)
[2022-09-20] MEDS ORDERED: fentaNYL 100 MCG/2 ML INJECTION As Ordered ONE (09:02)
[2022-09-20] MEDS ORDERED: GLYCOPYRROLATE INJ 0.2 MG/ML 2 ML VIAL As Ordered ONE (09:10)
[2022-09-20] MEDS ORDERED: ePHEDrine SULFATE 25 MG/5 ML(5MG/ML) SYRINGE As Ordered ONE (09:11)
[2022-09-20] MEDS ORDERED: SIMETHICONE 40MG/0.6ML DROPS 30ML As Ordered ONE (09:17)
[2022-09-20 10:10] VITALS: BP 107/62
== END 2022-09-20 10:35 | disposition home or self-care (01) ==
LOC: M OPP 08:10
PROVIDERS: ATTEND Internal Medicine Gastroenterology
DX: D12.2 Benign neoplasm of ascending colon (principal); K63.5 Polyp of colon; K64.8 Other hemorrhoids; K57.30 Diverticulosis of large intestine without perforation or abscess without bleeding; D50.9 Iron deficiency anemia, unspecified; R19.5 Other fecal abnormalities; I48.91 Unspecified atrial fibrillation; G47.33 Obstructive sleep apnea (adult) (pediatric); B19.20 Unspecified viral hepatitis C without hepatic coma; E78.00 Pure hypercholesterolemia, unspecified; Z87.891 Personal history of nicotine dependence; Z79.01 Long term (current) use of anticoagulants; Z79.02 Long term (current) use of antithrombotics/antiplatelets; Z79.899 Other long term (current) drug therapy
CPT/HCPCS: 43235; 45385; 88305; J3010

== ENCOUNTER → 2022-10-11 | Outpatient (REF) | payer MEDICARE, OTHER ==
[~2022-10-11] MED LIST changes: -NS 1,000 ML IV ONE
[2022-10-11 17:42] LABS: HEMATOCRIT 33.7 % (42.0-52.0); HEMOGLOBIN 10.9 g/dl (13.5-17.5); MEAN CORPUSCULAR HEMOGLOBIN 31.7 pg (27.0-33.0); MEAN CORPUSCULAR HGB CONC 32.3 g/dl (32.0-36.5); PLATELET COUNT, AUTOMATED 231 10^3/uL (150-450); RED BLOOD COUNT 3.44 10^6/uL (4.30-6.10); WHITE BLOOD COUNT 6.4 10^3/uL (4.0-10.0)
[2022-10-11 17:43] LABS: PERCENT SATURATION 15.5 % (19.7-50.0)
== END ==
LOC: M LABDRAWC 17:12
PROVIDERS: ATTEND Physician Assistant Medical
DX: D50.9 Iron deficiency anemia, unspecified (principal)